=== PATIENT | female | born 1965 | race Caucasian/White ===

== ENCOUNTER 2019-11-20 16:51 | Emergency (ER) | payer BC ==
[2019-11-20 17:06] VITALS: BP 156/94
--- NOTE | 2019-11-20 17:18 | UC ---
Hand/Wrist HPI - HPI Summary HPI Summary: 54 yo who fell on 11/17 when her approximately 50 pound dog took off after a bunny, pulling her left arm and causing her to fall forward, impacting her left cheek and forehead. Over the past 24 hours, she has increase in bruising and swelling of the palm. Moderate pain. - History Of Current Complaint Chief Complaint: UCUpperExtremity Stated Complaint: SP FALL-LT HAND INJURY Time Seen by Provider: 11/20/19 17:08 Hx Obtained From: Patient Hx Last Menstrual Period: 11/16/2019 Onset/Duration: Sudden Onset, Lasting Days - 2 Severity Initially: Moderate Severity Currently: Moderate Pain Intensity: 5 Character Of Pain: Aching, Throbbing Aggravating Factor(s): Movement Alleviating Factor(s): Rest, Ice Associated Signs And Symptoms: Positive: Swelling, Bruising. Negative: Numbness /Tingling Related History: Dominant Hand Right - Risk Factors Compartment Syndrome Risk Factors: Pain - Allergies/Home Medications Allergies/Adverse Reactions: Allergies Allergy/AdvReac Type Severity Reaction Status Date / Time Penicillins Allergy Hives Verified 11/20/19 16:57 Home Medications: Home Medications Cephalexin CAP* [Keflex 500 CAP*] 500 mg PO TID #15 cap 11/20/19 [Rx] Escitalopram * [Lexapro 10 mg (NF)] 10 mg PO DAILY 11/20/19 [History Confirmed 11/20/19] Fexofenadine (NF) [Tasia 180 (NF)] 180 mg PO DAILY 11/20/19 [History Confirmed 11/20/19] Montelukast Sodium TAB* [Singulair TAB*] 10 mg PO DAILY 11/20/19 [History Confirmed 11/20/19] Naproxen [Naproxen 250 mg tab] 375 mg PO BID PRN 11/20/19 [History Confirmed ] PMH/Surg Hx/FS Hx/Imm Hx Previously Healthy: Yes Respiratory History: Asthma, Other - environmental allergies. Psychological History: Anxiety - Surgical History Surgical History: None - Social History Occupation: Employed Full-time Lives: With Family Alcohol Use: Occasionally Substance Use Type: None Smoking Status (MU): Former Smoker When Did the Patient Quit Smoking/Using Tobacco: 30+ years ago Review of Systems All Other Systems Reviewed And Are Negative: Yes Constitutional: Positive: Negative Skin: Positive: Bruising, Other - abrasion left yazdanism Eyes: Positive: Other - ecchymosis under left eye ENT: Positive: Negative Respiratory: Positive: Negative Cardiovascular: Positive: Negative Gastrointestinal: Positive: Negative Motor: Positive: Decreased ROM - fingers diffusely stiff Musculoskeletal: Positive: Arthralgia, Myalgia Neurological/Mental Status: Positive: Negative Psychological: Positive: Negative Is Patient Immunocompromised?: No Physical Exam Triage Information Reviewed: Yes Appearance: Well-Appearing, Pain Distress - mild Vital Signs: Initial Vital Signs Temp 99.2 F 11/20/19 16:59 Pulse 69 11/20/19 16:59 Resp 17 11/20/19 16:59 BP 156/94 11/20/19 16:59 Pulse Ox 97 11/20/19 16:59 Eye Exam: Other - HUBERT, normal eom Eyes: Positive: Conjunctiva Clear, Other: - left lower lid with swelling and small ecchymosis. ENT: Positive: Normal ENT inspection Neck: Positive: Supple, Nontender, No Lymphadenopathy Respiratory Exam: Normal Cardiovascular Exam: Normal Musculoskeletal Exam: Other - Left UE--no tenderness along clavicle, shoulder. Small ecchymosis left lateral elbow, but no tenderness olecranon or radial head. Musculoskeletal: Positive: ROM Intact - left wrist with full rom., Other: - left palm with ecchymosis, and diffuse swelling of the left hand. TTP 4th and 5th metacarpals. Full extension and Neurological: Positive: Alert, Muscle Tone Normal Psychological Exam: Normal Skin: Positive: Rashes - excoriations left forearm, eczematous rash, Other - abrasion 1.5 cm left dorsal forearm with approx 1 cm mild erythema, no lymphangitis. Abrasion approx 5 cm left yazdanism, light crust, no surounding erythema. Diagnostics - Radiology No standard instances Radiology Interpretation Completed By: ED Physician - soft tissue swelling, no fracture seen Hand/Wrist Course/Dx - Course Course Of Treatment: Reviewed no fracture appreciated, but radiologist will over-read. Monitor erythema on left forearm over night, apply topical--begin cephalexin if redness is expanding. - Differential Dx/Diagnosis Differential Diagnosis/HQI/PQRI: Cellulitis, Contusion Provider Diagnosis: Contusion of hand, left Discharge ED - Sign-Out/Discharge Documenting (check all that apply): Patient Departure All imaging exams completed and their final reports reviewed: No - Discharge Plan Condition: Stable Disposition: HOME Prescriptions: Cephalexin CAP* [Keflex 500 CAP*] 500 mg PO TID #15 cap Patient Education Materials: Contusion in Adults (ED) Referrals: Soha Croft MD [Primary Care Provider] - Additional Instructions: The swelling in the left hand has increased due to the amount of bruising in the hand. Our radiologist will review the xrays in the morning, and if there is a change from my reading you will receive a call. Wear the brace for comfort. Apply ice to the left hand and wrist for 15 to 20 minutes 2 or 3 times per day. As discussed, if the redness and tenderness surrounding the left arm abrasion increase in the next day despite topical antibiotic, please start the oral antibiotic. There is a small risk of cross reaction to your penicillin allergy, but the risk is small. If you develop itching or hives, stop use of the antibiotic and notify us. - Billing Disposition and Condition Condition: STABLE Disposition: Home
--- NOTE | 2019-11-21 09:09 | UC ---
- Progress Note Progress Note: Final radiologist reading of left hand x-ray from November 20, 2019 comes back as a dislocation of the fifth metacarpal from the hamate likely in the dorsal direction. Provider the same date did not reports a dislocation on their interpretation of the x-ray. Nursing to call patient inform them of the radiologist reading and have them call the orthopedist today to be seen for the dislocation. Patient follow-up with either Dr. Hill or Dr. Kennedy the orthopedists. Course/Dx - Diagnoses Provider Diagnoses: Contusion of hand, left Discharge ED - Sign-Out/Discharge Documenting (check all that apply): Patient Departure All imaging exams completed and their final reports reviewed: Yes - Discharge Plan Condition: Stable Disposition: HOME Prescriptions: Cephalexin CAP* [Keflex 500 CAP*] 500 mg PO TID #15 cap Patient Education Materials: Contusion in Adults (ED) Referrals: Soha Croft MD [Primary Care Provider] - Manish Hill MD [Medical Doctor] - Sherwin Alfonso MD [Medical Doctor] - Additional Instructions: The swelling in the left hand has increased due to the amount of bruising in the hand. Our radiologist will review the xrays in the morning, and if there is a change from my reading you will receive a call. Wear the brace for comfort. Apply ice to the left hand and wrist for 15 to 20 minutes 2 or 3 times per day. As discussed, if the redness and tenderness surrounding the left arm abrasion increase in the next day despite topical antibiotic, please start the oral antibiotic. There is a small risk of cross reaction to your penicillin allergy, but the risk is small. If you develop itching or hives, stop use of the antibiotic and notify us. - Billing Disposition and Condition Condition: STABLE Disposition: Home
== END 2019-11-20 17:58 | disposition home or self-care (01) ==
LOC: UCCORT 16:51
DX: S60.222A Contusion of left hand, initial encounter (principal); S00.83XA Contusion of other part of head, initial encounter; S50.02XA Contusion of left elbow, initial encounter; S00.81XA Abrasion of other part of head, initial encounter; S50.812A Abrasion of left forearm, initial encounter; W18.39XA Other fall on same level, initial encounter; Y93.K1 Activity, walking an animal; Y92.9 Unspecified place or not applicable; F41.9 Anxiety disorder, unspecified; Z79.899 Other long term (current) drug therapy; Z88.0 Allergy status to penicillin; Z87.891 Personal history of nicotine dependence
CPT/HCPCS: 99213; G0463

== ENCOUNTER 2019-11-27 09:42 | Day surgery (SDC) | payer BC ==
[~2019-11-27 09:42] MED LIST: Buffered Lidocaine 1% SYRIN* 1 ML/SYRINGE INTRADERM ONE; Lactated Ringers 1000 ML Bag* 1,000 ML IV SCH
[2019-11-27] MEDS ORDERED: Clindamycin 900 MG/D5W BAG(*) 900 MG/50 ML BAG IVPB ONE (09:53)
[2019-11-27] MEDS ORDERED: Midazolam* 1 MG/ML 2 ML VIAL (2 MG) ONE (11:40)
[2019-11-27] MEDS ORDERED: Mepivacaine 2% MPF (20 MG/ML)* 20 ML MPF ONE (12:04)
[2019-11-27] MEDS ORDERED: ROPIVACAINE 5 MG/ML 30 ML BTL (0.5%) ONE ×2 (12:05→12:19)
[2019-11-27] MEDS ORDERED: Lidocaine 2% PF * 5 ML VIAL ONE (12:05)
[2019-11-27] MEDS ORDERED: Bupivacaine 0.25% SDV* 30 ML ONE (12:41)
[2019-11-27] MEDS ORDERED: oxyCODONE TAB* 5 MG TAB PO PRN (13:15)
[2019-11-27] MEDS ORDERED: Acetaminophen TAB* 325 MG PO PRN (13:15)
[2019-11-27] MEDS ORDERED: Ondansetron INJ* 2 MG/ML VIAL IV PRN (13:15)
[2019-11-27] MEDS ORDERED: Naloxone* 0.4 MG/ML 1 ML VIAL IV PRN (13:15)
[2019-11-27] MEDS ORDERED: Propofol* 10 MG/ML 20 ML BTL ONE (13:24)
[2019-11-27] MEDS ORDERED: Acetaminophen TAB* 325 MG ONE (13:57)
[2019-11-27] MEDS ORDERED: fentaNYL* 50 MCG/ML 2 ML VIAL (100 MCG VIAL) ONE (13:57)
[2019-11-27] MEDS: fentaNYL* 50 MCG/ML 2 ML VIAL (100 MCG VIAL) IV PRN ×2 (13:59→14:14)
[2019-11-27] MEDS ORDERED: oxyCODONE TAB* 5 MG TAB ONE (14:18)
--- NOTE | 2019-11-27 14:20 | OP ---
OPERATIVE REPORT: DATE OF OPERATION: 11/27/19 - SDS DATE OF : 67 SURGEON: Charan Green MD. ELECTRIC CRANE OPERATOR: MIRYAM Howard. ANESTHESIOLOGIST: Dr. Mariscal. ANESTHESIA: Local MAC plus peripheral nerve block. PRE-OP DIAGNOSIS: Left fifth carpometacarpal joint dislocation. POST-OP DIAGNOSIS: Left fifth carpometacarpal joint dislocation. OPERATIVE PROCEDURE: Open reduction internal fixation of left small finger carpometacarpal joint dislocation. INDICATIONS: Ms. Gallegos has the dislocation. It is almost 2 weeks old. We talked about treatment options, risks, and benefits. She wanted to proceed with surgery. She understands the importance of achieving an anatomic reduction. ESTIMATED BLOOD LOSS: 2 mL. COMPLICATIONS: None. FINDINGS: See above and below. DESCRIPTION OF PROCEDURE: Ms. Gallegos was seen in the preoperative holding area. The correct site, side, and procedure were identified. We came back to the operating room. The arm was cleaned, prepped, and draped in the usual fashion, and time-out was performed. The arm was exsanguinated and the tourniquet inflated. Closed reduction was not aligning up anatomically. I therefore made a 3 cm incision over the dorsum of the fifth CMC joint. Dissection was carried down. The traversing sensory nerves were all preserved. The joint capsule over the fifth CMC joint was opened and released until I had excellent visualization of the beginning of the fourth and the empty fifth CMC joint. The fifth metacarpal bone was seen dislocated palmar and a little bit ulnar to the hamate. I cleaned out all of the interposing soft tissue that had been preventing the reduction. I then prepositioned a 0.062 K-wire. I reduced the joint and passed that down into the hamate. I then passed additional K-wire from the base of the fifth into the base of the fourth and then a third K-wire across the fifth CMC joint down into the hamate again. Final fluoroscopic imaging confirmed anatomic reduction. Everything was looking good. I closed the joint capsule with 4-0 PDS suture. The skin was closed with 4- 0 Monocryl and Steri-Strips. I had infiltrated 0.25% Marcaine all around the operative site at the beginning of the surgery to create an additional field block in case the block was not adequate. Pins were bent, clipped, and dressed, and a well-padded ulnar gutter splint was applied. She was taken to the recovery room in stable condition. [id number]/[id number] #: [id number] ROSALINE
[2019-11-27 15:05] VITALS: BP 154/88
== END 2019-11-27 15:05 | disposition home or self-care (01) ==
LOC: OR 09:42
PROVIDERS: ATTEND Orthopaedic Surgery Hand Surgery
DX: S63.065A Dislocation of metacarpal (bone), proximal end of left hand, initial encounter (principal); W19.XXXA Unspecified fall, initial encounter; Y93.K1 Activity, walking an animal; Y92.9 Unspecified place or not applicable; J45.909 Unspecified asthma, uncomplicated; F41.8 Other specified anxiety disorders
CPT/HCPCS: 76000; 81025; A9270-GY; C1776; J0670; J2250; J2704; J2795; J3010; J3490